=== PATIENT | male | born 1990 | race Caucasian/White ===

== ENCOUNTER 2019-10-27 14:32 | Emergency (ER) | payer SELFPAY ==
[~2019-10-27] VITALS: Ht 188 cm; Wt 90.0 kg
--- OUTSIDE RECORDS SUMMARY | 2019-10-27 14:38 | XMS REPORT ---
Author Author Musa JARVIS Organization [facility] Address [address] [place] [address] Care Team Providers Care Paper Machine Tender Name Role Phone JARVISMAJO HallELE Unavailable PROBLEMS Type Condition ICD9-CM Code PIL21-BI Code Onset Dates Condition S tatus SNOMED Code Problem Bladder mass N32.89 Active 0869966 04 Problem Bone lesion M89.9 Active [id number] Assessment Hematuria R31.9 Mar, Active 764340 03 Assessment Renal cyst N28.1 Mar, Active 78498 009 Assessment Urinary retention R33.9 Mar, Active 748755310 Assessment Routine health maintenance Z00.00 Mar, Active 351667948 ALLERGIES Substance Reaction Event Type Date Status bee venom anaphylaxis Non Drug Allergy Mar, Active SOCIAL HISTORY No smoking Hx information available PLAN OF CARE VITAL SIGNS Height 74 in 2016-03-26 Weight 195.9 lbs 2016-03-26 Heart Rate 88 bpm 2016-03-26 Respiratory Rate 20 2016-03-26 BMI 25.15 kg/m2 2016-03-26 Blood pressure systolic 160 mmHg 2016-03-26 Blood pressure diastolic 88 mmHg 2016-03-26 MEDICATIONS Medication Instructions Dosage Frequency Start Date End Date Duration S tatus Flomax 0.4 MG Orally Once a day 1 capsule daily 30 m inutes after the same meal each day 24h Mar, Active RESULTS No Results PROCEDURES Procedure Date Ordered Related Diagnosis Body Site Office Visit, Est Pt., Level 3 Mar 26, 2016 IMMUNIZATIONS No Known Immunizations
--- OUTSIDE RECORDS SUMMARY | 2019-10-27 14:38 | XMS REPORT ---
Author Author Musa JARVIS Organization [employer] Address Unknown Phone Unavailable Care Team Providers Care Confidential Secretary Name Role Phone SUZETTE JARVIS CP Unavailable Allergies No Known Allergies Problems Problem Type Condition Code Onset Dates Condition Statu s Problem Bone lesion M89.9 Active Problem Bladder mass N32.89 Active Medications No Known Medications Results No Known Results Summary Purpose [employer] Submission
--- OUTSIDE RECORDS SUMMARY | 2019-10-27 14:38 | XMS REPORT ---
Author Author Musa JARVIS Organization [employer] Address Unknown Phone Unavailable Care Team Providers Care Quality Audit Representative Name Role Phone SUZETTE JARVIS CP Unavailable Allergies No Known Allergies Problems Problem Type Condition Code Onset Dates Condition Statu s Problem Bone lesion M89.9 Active Assessment Bone lesion M89.9 Active Problem Bladder mass N32.89 Active Medications No Known Medications Procedures Procedure Coding System Code Date X-RAY EXAM HIP UNI 2-3 VIEWS CPT-4 82363 Mar 16, 2016 Results No Known Results Summary Purpose [employer] Submission
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
--- OUTSIDE RECORDS SUMMARY | 2019-10-27 14:38 | XMS REPORT ---
Author Author Musa JARVIS Organization [employer] Address Unknown Phone Unavailable Care Team Providers Care Platform Stapler Name Role Phone SUZETTE JARVIS CP Unavailable Allergies No Known Allergies Problems Problem Type Condition Code Onset Dates Condition Statu s Problem Bone lesion M89.9 Active Assessment Bone lesion M89.9 Active Problem Bladder mass N32.89 Active Medications No Known Medications Results No Known Results Summary Purpose [employer] Submission
[2019-10-27] MEDS ORDERED: KETOROLAC 30 MG/ML VIAL IVP ONE (15:00)
[2019-10-27 15:38] LABS: HEMATOCRIT 53 % (40-54); HEMOGLOBIN 18.2 G/DL (13.3-17.7); MEAN CORPUSCULAR HEMOGLOBIN 31 PG (25-34); WHITE BLOOD COUNT 12.1 10^3/uL (4.3-11.0)
[2019-10-27 15:39] LABS: BASOPHILS % (AUTO) 0 % (0-10); EOSINOPHILS % (AUTO) 2 % (0-10); LYMPHOCYTES # (AUTO) 2.3 X 10^3 (1.0-4.0); LYMPHOCYTES % (AUTO) 19 % (12-44); MEAN CORPUSCULAR HGB CONC 34 G/DL (32-36); MEAN CORPUSCULAR VOLUME 90 FL (80-99); MEAN PLATELET VOLUME 9.8 FL (7.4-10.4); MONOCYTES # (AUTO) 0.9 X 10^3 (0.0-1.0); MONOCYTES % (AUTO) 8 % (0-12); NEUTROPHILS # (AUTO) 8.5 X 10^3 (1.8-7.8); NEUTROPHILS % (AUTO) 71 % (42-75); PLATELET COUNT 402 10^3/uL (130-400); RED CELL DISTRIBUTION WIDTH 13.2 % (10.0-14.5)
[2019-10-27 15:40] LABS: BASOPHILS # (AUTO) 0.1 10^3/uL (0.0-0.1); EOSINOPHILS # (AUTO) 0.2 10^3/uL (0.0-0.3)
[2019-10-27] MEDS ORDERED: HOLD METFORMIN - RECEIVED CONTRAST 20 ML VIAL IV SCH (15:45)
[2019-10-27] MEDS ORDERED: IOHEXOL 350 MG/ML 100 ML (OMNIPAQUE 350) VIAL IV ONE (15:45)
[2019-10-27] MEDS ORDERED: NS 100 ML (IVPB) BAG IV ONE (15:45)
[2019-10-27] MEDS ORDERED: CATHETER FLUSH 10 ML SYR IV PRN (15:45)
[2019-10-27 16:07] LABS: ALANINE AMINOTRANSFERASE 19 U/L (0-55); ALBUMIN 4.4 GM/DL (3.2-4.5); ALKALINE PHOSPHATASE 97 U/L (40-136); BILIRUBIN,TOTAL 0.5 MG/DL (0.1-1.0); BUN/CREATININE RATIO 11; CARBON DIOXIDE 30 MMOL/L (21-32); CHLORIDE 97 MMOL/L (98-107); CREATININE SERUM 0.88 MG/DL (0.60-1.30); GFR ESTIMATED > 60; GLUCOSE 101 MG/DL (70-105); POTASSIUM 4.7 MMOL/L (3.6-5.0); SODIUM 139 MMOL/L (135-145); TOTAL PROTEIN 7.5 GM/DL (6.4-8.2)
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
[2019-10-27] MEDS ORDERED: AMPICILLIN/SULBACTAM INJECTION 3 GM in NS (IVPB) 100 ML IV ONE (18:00)
[2019-10-27] MEDS ORDERED: DEXAMETHASONE 10 MG/ML (DECADRON) 1 ML VIAL IV ONE (18:00)
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
--- NOTE | 2019-10-27 18:26 | NUR ---
Report to Nasima COLEMAN at this time in the Emergency Department at [facility] on the [address] in [place], [place].
[2019-10-27 19:03] VITALS: BP 148/98
== END 2019-10-27 19:01 | disposition short-term general hospital (02) ==
LOC: EDUNIT# 14:32 → ER FS 14:34
DX: S02.69XB Fracture of mandible of other specified site, initial encounter for open fracture (principal); Y04.0XXA Assault by unarmed brawl or fight, initial encounter; F17.210 Nicotine dependence, cigarettes, uncomplicated
CPT/HCPCS: 36415; 70450; 70491; 80053; 85025; 96374; 96375

== ENCOUNTER 2020-02-13 20:50 | Emergency (ER) | payer SELFPAY | END 2020-02-13 21:03 | disposition left against medical advice (07) | LOC: EDUNIT# 20:50 → ER FS 20:51 | DX: M79.602 Pain in left arm (principal) ==

== ENCOUNTER 2021-09-09 18:59 | Emergency (ER) | payer SELFPAY ==
[~2021-09-09] VITALS: Ht 188 cm; Wt 90.0 kg
[2021-09-09 19:14] VITALS: BP 150/87
--- NOTE | 2021-09-09 19:29 | ED GU-Male ---
General Chief Complaint: - Reproductive Stated Complaint: LOWER BREAK OUT Nursing Triage Note: c/o rash to penis x8 weeks, no prior treatment. wants tested for sti. Source: patient Exam Limitations: no limitations History of Present Illness Date Seen by Provider: September 09, 2021 Time Seen by Provider: 19:15 Allergies and Home Medications Allergies Coded Allergies: No Known Drug Allergies (Unverified , 03/06/16) Patient Home Medication List Home Medication List Reviewed: Yes No Active Prescriptions or Reported Meds Review of Systems Review of Systems Constitutional: No chills, No diaphoresis EENTM: No ear discharge, No ear pain Respiratory: No cough, No short of breath Cardiovascular: No chest pain, No edema Gastrointestinal: No abdominal pain, No constipation, No nausea, No vomiting Genitourinary: denies burning, denies discharge Musculoskeletal: No back pain, No joint pain All Other Systemes Reviewed Negative Unless Noted: Yes Past Npqyrmj-Tlzkzt-Iyylvl Hx Patient Social History Tobacco Use?: Yes Substance use?: No Alcohol Use?: No Pt feels they are or have been: No Past Medical History Surgery/Hospitalization HX: jaw sx. Surgeries: No Respiratory: No Cardiac: No Neurological: No Genitourinary: No Gastrointestinal: No Musculoskeletal: No Endocrine: No HEENT: No Cancer: No Psychosocial: No Integumentary: No Blood Disorders: No Physical Exam Vital Signs Vital Signs - First Documented 09/09/21 19:14 Temp 36.5 Pulse 111 Resp 18 B/P (MAP) 150/87 (108) Pulse Ox 97 O2 Delivery Room Air Capillary Refill : Less Than 3 Seconds Height, Weight, BMI Height: '" Weight: lbs. oz. kg; 25.00 BMI Method: General Appearance: WD/WN, no apparent distress HEENT: PERRL/EOMI, pharynx normal Neck: full range of motion, normal inspection Cardiovascular: normal peripheral pulses, regular rate, rhythm Respiratory: no respiratory distress, no accessory muscle use Genital/Rectal: normal genital exam (The patient indicates white papules on the head of the penis that are noninflamed nonerythematous nontender.) Progress/Results/Core Measures Suspected Sepsis SIRS Temperature: Pulse: 111 Respiratory Rate: 18 Blood Pressure 150 /87 Mean: 108 Results/Orders Vital Signs/I&O 09/09/21 19:14 Temp 36.5 Pulse 111 Resp 18 B/P (MAP) 150/87 (108) Pulse Ox 97 O2 Delivery Room Air Capillary Refill : Less Than 3 Seconds Blood Pressure Mean: 108 Progress Note : Time: 19:33 Progress Note Patient's indicating penile papules which are benign. Did not appear to be inflamed. There are normal anatomy and we have given reassurances. We did offer STI testing and the patient that he would follow-up with his primary care provider for that later. Departure Impression Primary Impression: Penile papules Disposition: HOME, SELF-CARE Condition: Stable Departure-Patient Inst. Decision time for Depature: 19:35 Referrals: NO,LOCAL PHYSICIAN (PCP/Family) Primary Care Physician Patient Instructions: NO INSTRUCTIONS GIVEN Add. Discharge Instructions: Penile papules are benign little outgrowths of unknown cause but formal on the shaft or head of the penis. They do not turn into any cancerous growth. They are not caused by any known sexually-transmitted infection. Unless they are cosmetically irritating then you do not need to do anything about them. All discharge instructions reviewed with patient and/or family. Voiced understanding. Scripts No Active Prescriptions or Reported Meds MIGNON ROBISON September 09, 2021 19:29
== END 2021-09-09 19:40 | disposition home or self-care (01) ==
LOC: EDUNIT# 18:59 → ER 19:04
DX: D29.0 Benign neoplasm of penis (principal)
CPT/HCPCS: 99282

== ENCOUNTER 2022-04-10 23:16 | Emergency (ER) | payer SELFPAY ==
[~2022-04-10] VITALS: Ht 187.9 cm; Wt 98.4 kg
[2022-04-10 23:20] VITALS: BP 181/98
[2022-04-10] MEDS ORDERED: SULF1TAB38 PO (23:28)
--- NOTE | 2022-04-10 23:28 | ED Integumentary General ---
General Stated Complaint: POSS INSECT BITES ON LEFT LEG History of Present Illness Date Seen by Provider: Apr 10, 2022 Time Seen by Provider: 23:23 Initial Comments 31-year-old male presents with 2 areas of small abscess/induration and warmth on his left thigh. Wound is still quite indurated warm. 1 is an open abscess is drained is within the healing stage. He presents because he thinks he finding some antibiotics. He reports 1 drained about a week ago and another one popped up about 4-5 days ago. He does not want it open even if there is an abscess that can be opened but just wants an antibiotic. He has no other systemic complaints. He thinks he is maybe got bit by an insect. Allergies and Home Medications Allergies Coded Allergies: No Known Drug Allergies (Unverified , 03/06/16) Patient Home Medication List Home Medication List Reviewed: Yes No Active Prescriptions or Reported Meds Review of Systems Review of Systems Constitutional: no symptoms reported EENTM: no symptoms reported Respiratory: no symptoms reported Cardiovascular: no symptoms reported Gastrointestinal: no symptoms reported Genitourinary: no symptoms reported Musculoskeletal: no symptoms reported Skin: see HPI Psychiatric/Neurological: No Symptoms Reported Past Kubywgb-Dfbsaf-Ofhnhy Hx Past Medical History Surgery/Hospitalization HX: jaw sx. Surgeries: No Respiratory: No Cardiac: No Neurological: No Genitourinary: No Gastrointestinal: No Musculoskeletal: No Endocrine: No HEENT: No Cancer: No Psychosocial: No Integumentary: No Blood Disorders: No Physical Exam Vital Signs Capillary Refill : General Appearance: other (Anxious) Cardiovascular: normal peripheral pulses, regular rate, rhythm Respiratory: lungs clear, normal breath sounds, no respiratory distress Gastrointestinal: non tender, soft Extremities: normal range of motion, normal capillary refill Neurologic/Psychiatric: alert, oriented x 3, other (Very anxious) Skin Problem Location: lower extremities (Left thigh) Skin Problem Character: abscess, erythema, tenderness Progress/Results/Core Measures Progress Progress Note : Progress Note Patient will be prescribed Bactrim. Patient has a small abscess but does not want any drainage done. He will put warm compresses on try to drain it himself. Patient's other wound is already draining and in the healing stages. Patient stable and discharged Departure Impression Primary Impression: Abscess of left thigh Disposition: 01 HOME, SELF-CARE Condition: Stable Departure-Patient Inst. Referrals: NO,LOCAL PHYSICIAN (PCP/Family) Primary Care Physician Patient Instructions: David, Adult ED Add. Discharge Instructions: Warm compress for 15 minutes at a time 3-4 times daily. Once starts draining, please express purulent discharge to help heal. Please take antibiotics as prescribed Scripts Sulfamethoxazole/Trimethoprim (Bactrim Ds Tablet) 1 Each Tablet 1 EACH PO BID for 10 Days, #20 TAB Prov: SIMONA MARTINEZ DO 04/10/22 SIMONA MARTINEZ DO Apr 10, 2022 23:28
[2022-04-10] MEDS ORDERED: TRIM/SULFAMETH 160/800 (SEPTRA DS) TAB PO ONE (23:30)
== END 2022-04-10 23:35 | disposition home or self-care (01) ==
LOC: EDUNIT# 23:16 → ER FS 23:19
DX: L02.416 Cutaneous abscess of left lower limb (principal)
CPT/HCPCS: 99283